=== PATIENT | male | born 1955 | race Caucasian/White ===

== ENCOUNTER → 2021-03-12 | Outpatient (CLI) | payer MEDICARE ==
[~2021-03-12] MED LIST: LISI-130 PO; SIMV40TA18 PO
[2021-03-12 11:04] LABS: BASO % 0 % (0-3); EOS # 0.2 x10^3/uL (0.0-0.7); EOS % 1 % (0-3); HEMATOCRIT 47.1 % (39.0-53.0); HEMOGLOBIN 15.5 g/dL (13.0-17.5); LYMPH # 2.2 x10^3/uL (1.0-4.8); LYMPH % 16 % (24-48); MEAN CORPUSCULAR HEMOGLOBIN 32 pg (25-35); MEAN CORPUSCULAR HGB CONC 33 g/dL (31-37); MEAN CORPUSCULAR VOLUME 97 fL (79-100); MONO # 1.1 x10^3/uL (0.0-1.1); MONO % 8 % (0-9); NEUT # 10.5 x10^3/uL (1.8-7.7); NEUT % 75 % (31-73); PLATELET COUNT 210 x10^3/uL (140-400); RED BLOOD COUNT 4.86 x10^6/uL (4.30-5.70); RED CELL DISTRIBUTION WIDTH 13.6 % (11.5-14.5)
[2021-03-12 11:29] LABS: CREATININE 1.2 mg/dL (0.7-1.3); GFR 60.6; POTASSIUM 4.5 mmol/L (3.5-5.1)
[2021-03-12 11:34] LABS: ALBUMIN/GLOBULIN RATIO 1.1 (1.0-1.7); TOTAL BILIRUBIN 0.6 mg/dL (0.2-1.0); TOTAL PROTEIN 7.7 g/dL (6.4-8.2)
== END ==
LOC: LAB 10:24
PROVIDERS: ATTEND Radiology Radiation Oncology
DX: C32.9 Malignant neoplasm of larynx, unspecified (principal); Z12.5 Encounter for screening for malignant neoplasm of prostate
CPT/HCPCS: 36415; 80053; 85025; G0103

== ENCOUNTER → 2021-03-16 | Outpatient (CLI) | payer MEDICARE ==
--- NOTE | 2021-03-16 17:15 | RAD ---
EXAM: PET/CT SCAN INDICATION: Squamous cell carcinoma of larynx. History of prostate cancer. COMPARISON: None PET/CT SCAN TECHNIQUE: Approximately 60 minutes after the intravenous administration of 12.01 millicu eric of F-18 fluorodeoxyglucose (FDG), PET imaging of the body from the base of the skull through the mid thighs was performed. Reconstruction in all 3 planes were performed. The patient's serum glucose level at the time of the F-18 FDG administration was 121 mg/dL. A noncontrast CT scan was obtained f or attenuation correction and anatomic localization purposes only and is not considered a diagnostic CT scan. PQRS compliance Statement One or more of the following individualized dose reduction techniques were utilized for this study: 1. Automated exposure control 2. Adjustment of the mA and/or kV according to patient size 3. Use of iterative reconstruction technique FINDINGS: HEAD AND NECK: There is an FDG avid left cervical chain lymph node between the left sternocleidomasto id muscle and left posterior inferior parotid gland. This measures 1.9 x 1.0 cm and has SUV max 7.74 (CT image 40/299). No other FDG avid lymph nodes. There is mild symmetric FDG uptake in the palatine tonsils and extraocular muscles, likely physiologic. Mild FDG uptake within the ethmoid air cells ass ociated with mucosal thickening is likely inflammatory. CHEST: No FDG avid lymphadenopathy in the chest. Heart is normal in size. There are coronary artery c alcifications. Mild paraseptal emphysema in the lung apices. 3 mm nodule in the right upper lobe (silke ge 88/299) and 5 mm nodule in the right middle lobe (image 120/299) are below the size threshold for PET detection. No pleural effusion. ABDOMEN AND PELVIS: No FDG avid disease or lymphadenopathy in the abdomen and pelvis. There is a calc ification in the spleen. Gallbladder is mildly distended. Slightly nodular contour of liver. There is sigmoid diverticulosis. Prostate gland is surgically absent. MUSCULOSKELETAL: There is a 2 x 1 cm area of nodular skin thickening in the posterolateral right uppe r thigh with moderate FDG uptake, SUV max 5.62 (CT image 264/299). Additional area of skin thickening with mild FDG uptake along a skinfold in the left lower quadrant anterior abdominal wall with SUV ma x 2.34 (image 234/299). No abnormal FDG uptake in the bones. IMPRESSION: 1. FDG avid left cervical chain lymph node situated between the sternocleidomastoid muscle and product management analyst ior inferior left parotid gland with SUV max 7.74, suspicious for metastatic disease. 2. No FDG avid lymphadenopathy in the chest, abdomen or pelvis. 3. 2 cm area of nodular skin thickening with moderate FDG uptake in the posterior lateral right upper thigh, SUV max 5.62. Additional area of skin thickening with mild FDG uptake in the left lower quadr ant anterior abdominal wall with SUV max 2.34. These are indeterminate. Correlate with physical exam. 3. There is a 3 mm nodule in the right upper lobe and a 5 mm nodule in the right middle lobe. These a re nonspecific and below the size threshold for PET detection. Electronically signed by: Adelina Davison MD (03/16/2021 5:13 PM) [id number]
== END ==
LOC: PETSC 10:27
PROVIDERS: ATTEND Radiology Radiation Oncology
DX: C32.9 Malignant neoplasm of larynx, unspecified (principal); R91.8 Other nonspecific abnormal finding of lung field; K57.30 Diverticulosis of large intestine without perforation or abscess without bleeding; I25.10 Atherosclerotic heart disease of native coronary artery without angina pectoris; J43.9 Emphysema, unspecified; K82.8 Other specified diseases of gallbladder; R23.4 Changes in skin texture; Z90.79 Acquired absence of other genital organ(s)
CPT/HCPCS: 78815; A9552

== ENCOUNTER → 2021-03-22 | Outpatient (CLI) | payer MEDICARE ==
[2021-03-22 10:05] LABS: CALCIUM 8.6 mg/dL (8.5-10.1); GFR 74.8; POTASSIUM 4.6 mmol/L (3.5-5.1)
[2021-03-22 10:13] LABS: ALBUMIN 3.7 g/dL (3.4-5.0); ALBUMIN/GLOBULIN RATIO 1.1 (1.0-1.7); TOTAL BILIRUBIN 0.6 mg/dL (0.2-1.0); TOTAL PROTEIN 7.2 g/dL (6.4-8.2)
== END ==
LOC: ONCLAB 09:42
PROVIDERS: ATTEND Internal Medicine Hematology & Oncology
DX: C32.9 Malignant neoplasm of larynx, unspecified (principal)
CPT/HCPCS: 36415; 80053

== ENCOUNTER 2021-03-27 06:47 | Outpatient (CLI) | payer MEDICARE ==
[~2021-03-27] VITALS: Ht 185.4 cm; Wt 118.0 kg
[2021-03-27 07:33] LABS: BASO # 0.1 x10^3/uL (0.0-0.2); BASO % 1 % (0-3); EOS # 0.3 x10^3/uL (0.0-0.7); EOS % 3 % (0-3); HEMOGLOBIN 14.6 g/dL (13.0-17.5); LYMPH # 2.1 x10^3/uL (1.0-4.8); LYMPH % 21 % (24-48); MEAN CORPUSCULAR HEMOGLOBIN 33 pg (25-35); MEAN CORPUSCULAR HGB CONC 35 g/dL (31-37); MEAN CORPUSCULAR VOLUME 96 fL (79-100); MONO # 0.9 x10^3/uL (0.0-1.1); MONO % 9 % (0-9); NEUT # 6.7 x10^3/uL (1.8-7.7); NEUT % 66 % (31-73); PLATELET COUNT 273 x10^3/uL (140-400); RED BLOOD COUNT 4.39 x10^6/uL (4.30-5.70); RED CELL DISTRIBUTION WIDTH 13.3 % (11.5-14.5); WHITE BLOOD COUNT 10.1 x10^3/uL (4.0-11.0)
[2021-03-27 07:47] LABS: CALCIUM 8.6 mg/dL (8.5-10.1); CREATININE 1.1 mg/dL (0.7-1.3); POTASSIUM 4.5 mmol/L (3.5-5.1)
[2021-03-27] MEDS ORDERED: MIDAZOLAM HCL/PF 2 MG/2 ML VIAL. ONE (08:02)
[2021-03-27] MEDS ORDERED: fentaNYL PF VIAL 100 MCG/2 ML VIAL ONE (08:03)
[2021-03-27 08:04] VITALS: BP 116/64
[2021-03-27] MEDS ORDERED: SIMV40TA18 PO (08:17)
[2021-03-27] MEDS ORDERED: LISI-130 PO (08:17)
[2021-03-27] MEDS ORDERED: LIDOCAINE 1%/EPI 1:100,000 20 ML VIAL. ONE (08:29)
[2021-03-27] MEDS ORDERED: fentaNYL PF VIAL 100 MCG/2 ML VIAL IV ONE (08:45)
[2021-03-27] MEDS ORDERED: LIDOCAINE 1%/EPI 1:100,000 20 ML VIAL. SQ ONE (08:45)
[2021-03-27] MEDS ORDERED: MIDAZOLAM HCL/PF 2 MG/2 ML VIAL. IV ONE (08:45)
[2021-03-27 09:06] VITALS: BP 109/62
[2021-03-27 09:20] VITALS: BP 126/64
[2021-03-27 09:35] VITALS: BP 116/68
[2021-03-27 10:00] VITALS: BP 97/61
--- NOTE | 2021-03-27 10:27 | RAD ---
PROCEDURE: Fluoroscopically and ultrasound-guided placement of right internal jugular tunnel central venous catheter with port (Bard PowerPort, Groshong tip ). Clinical Indication: Laryngeal cancer. Chemotherapy access. Discussion: The risks and benefits of the procedure were discussed with the patient and/or their credit and collections representative. Informed consent was obtained. The patient was brought to the fluoroscopy suite and placed in supine position. A time out procedure was performed. The right neck and chest were prepped and draped using maximum sterile barrier technique including th e use of: Current guideline approved cutaneous antisepsis, a large sterile sheet to establish a steri le field. Additionally the fixed route bus operator wore a hat, mask, sterile gloves, a sterile gown during the proce dure as well as practiced acceptable hand hygiene prior to placing the port. Ultrasound-guided access: Ultrasound evaluation showed the right jugular vein to be patent and compr essible. 1 % lidocaine with epinephrine was administered to the skin and subcutaneous tissues overlyi ng the right neck and chest. Under direct ultrasound guidance a single wall puncture was made followe d by tract dilation and placement of a sheath. An ultrasound image was saved and sent to PACS. Next, an incision was made in an infraclavicular location and a pocket created. The catheter was tunneled between the pocket and the venotomy site. The catheter was advanced through the peel away sheath, u nder fluoroscopic guidance, such that it's tip was in the mid right atrium. The catheter was connecte d to the port reservoir. The port was accessed and found to flush and aspirate normally. The reservoi r was then placed into the subcutaneous pocket. The wound was closed in layers using 3 Vicryl and 4- 0 Vicryl suture. Dermabond was applied overlying the wound, and venotomy site. The patient tolerated procedure without immediate complication. Sedation: Conscious sedation was performed for 20 minutes. Sedation was carried out while the dot ent was continually monitored by a member of the Radiology nursing staff. Continual cardiopulmonary monitoring was carried out during the procedure. The patient tolerated the procedure well and there were no immediate complications. Fluoroscopy time: 0.4 mins Dose area product 2 Hernandez centimeter squared Impression: Successful ultrasound and fluoroscopically guided placement of right internal jugular melissa chata central venous catheter with port (Bard PowerPort, Groshong tip). Electronically signed by: Patricio Belcher MD (03/27/2021 10:24 AM) [id number]
--- NOTE | 2021-03-27 10:27 | RAD ---
PROCEDURE: Fluoroscopically and ultrasound-guided placement of right internal jugular tunnel central venous catheter with port (Bard PowerPort, Groshong tip ). Clinical Indication: Laryngeal cancer. Chemotherapy access. Discussion: The risks and benefits of the procedure were discussed with the patient and/or their customer assistance representative. Informed consent was obtained. The patient was brought to the fluoroscopy suite and placed in supine position. A time out procedure was performed. The right neck and chest were prepped and draped using maximum sterile barrier technique including th e use of: Current guideline approved cutaneous antisepsis, a large sterile sheet to establish a steri le field. Additionally the fruit thinner machine operator wore a hat, mask, sterile gloves, a sterile gown during the proce dure as well as practiced acceptable hand hygiene prior to placing the port. Ultrasound-guided access: Ultrasound evaluation showed the right jugular vein to be patent and compr essible. 1 % lidocaine with epinephrine was administered to the skin and subcutaneous tissues overlyi ng the right neck and chest. Under direct ultrasound guidance a single wall puncture was made followe d by tract dilation and placement of a sheath. An ultrasound image was saved and sent to PACS. Next, an incision was made in an infraclavicular location and a pocket created. The catheter was tunneled between the pocket and the venotomy site. The catheter was advanced through the peel away sheath, u nder fluoroscopic guidance, such that it's tip was in the mid right atrium. The catheter was connecte d to the port reservoir. The port was accessed and found to flush and aspirate normally. The reservoi r was then placed into the subcutaneous pocket. The wound was closed in layers using 3 Vicryl and 4- 0 Vicryl suture. Dermabond was applied overlying the wound, and venotomy site. The patient tolerated procedure without immediate complication. Sedation: Conscious sedation was performed for 20 minutes. Sedation was carried out while the dot ent was continually monitored by a member of the Radiology nursing staff. Continual cardiopulmonary monitoring was carried out during the procedure. The patient tolerated the procedure well and there were no immediate complications. Fluoroscopy time: 0.4 mins Dose area product 2 Hernandez centimeter squared Impression: Successful ultrasound and fluoroscopically guided placement of right internal jugular melissa chata central venous catheter with port (Bard PowerPort, Groshong tip). Electronically signed by: Patricio Belcher MD (03/27/2021 10:24 AM) [id number]
--- NOTE | 2021-03-27 10:30 | NUR ---
Discharge Note: JOSEFINA MCCORMICK Discharge instructions and discharge home medications reviewed with Patient and a copy given. All questions have been answered and understanding verbalized. The following instructions and handouts were given: MODERATE SEDATION, DEB CATH CARE, INCISION CARE. Discontinued RIGHT PIV, NO COMPLICATIONS, BANDAID APPLIED. Patient discharged to HOME WITH HIS SPOUSE. PT TAKEN VIA WHEELCHAIR TO OUTPATIENT, WHERE HIS SPOUSE PICKED HIM UP. NO COMPLICATIONS AND ALL QUESTIONS ANSWERED.
== END 2021-03-27 10:20 | disposition home or self-care (01) ==
LOC: INTRAD 06:47
PROVIDERS: ATTEND Internal Medicine Hematology & Oncology
DX: Z45.2 Encounter for adjustment and management of vascular access device (principal); C32.9 Malignant neoplasm of larynx, unspecified; I10 Essential (primary) hypertension; E78.00 Pure hypercholesterolemia, unspecified; J44.9 Chronic obstructive pulmonary disease, unspecified; M19.90 Unspecified osteoarthritis, unspecified site; F17.210 Nicotine dependence, cigarettes, uncomplicated; Z79.899 Other long term (current) drug therapy; Z98.890 Other specified postprocedural states
CPT/HCPCS: 36415; 36561; 76937; 77001; 80048; 85025; 85610; 99152; C1788; C1892; J0690; J2250; J3010; J3490

== ENCOUNTER → 2021-03-27 | Outpatient (CLI) | payer MEDICARE ==
[2021-03-27 10:00] VITALS: BP 97/61
[2021-03-27 12:26] LABS: BASO % 0 % (0-3); EOS # 0.1 x10^3/uL (0.0-0.7); EOS % 1 % (0-3); HEMATOCRIT 41.2 % (39.0-53.0); HEMOGLOBIN 13.7 g/dL (13.0-17.5); LYMPH # 2.1 x10^3/uL (1.0-4.8); LYMPH % 24 % (24-48); MEAN CORPUSCULAR HEMOGLOBIN 32 pg (25-35); MEAN CORPUSCULAR HGB CONC 33 g/dL (31-37); MEAN CORPUSCULAR VOLUME 97 fL (79-100); MONO # 0.8 x10^3/uL (0.0-1.1); MONO % 9 % (0-9); NEUT # 5.9 x10^3/uL (1.8-7.7); NEUT % 66 % (31-73); PLATELET COUNT 264 x10^3/uL (140-400); RED BLOOD COUNT 4.27 x10^6/uL (4.30-5.70); RED CELL DISTRIBUTION WIDTH 13.5 % (11.5-14.5)
[2021-03-27 12:29] LABS: CALCIUM 8.3 mg/dL (8.5-10.1); CREATININE 1.1 mg/dL (0.7-1.3); POTASSIUM 4.3 mmol/L (3.5-5.1)
[2021-03-27 12:35] LABS: ALBUMIN 3.5 g/dL (3.4-5.0); ALBUMIN/GLOBULIN RATIO 1.1 (1.0-1.7); TOTAL BILIRUBIN 0.3 mg/dL (0.2-1.0); TOTAL PROTEIN 6.6 g/dL (6.4-8.2)
== END ==
LOC: ONCLAB 11:31
PROVIDERS: ATTEND Physician Assistant
DX: C32.9 Malignant neoplasm of larynx, unspecified (principal)
CPT/HCPCS: 36415; 80053; 83615; 83735; 85025

== ENCOUNTER → 2021-04-02 | Outpatient (CLI) | payer MEDICARE ==
[2021-03-27 10:00] VITALS: BP 97/61
[2021-04-02 11:55] LABS: BASO % 0 % (0-3); EOS # 0.1 x10^3/uL (0.0-0.7); EOS % 1 % (0-3); HEMATOCRIT 41.9 % (39.0-53.0); LYMPH # 1.5 x10^3/uL (1.0-4.8); LYMPH % 14 % (24-48); MEAN CORPUSCULAR HEMOGLOBIN 32 pg (25-35); MEAN CORPUSCULAR HGB CONC 33 g/dL (31-37); MEAN CORPUSCULAR VOLUME 96 fL (79-100); MONO # 0.8 x10^3/uL (0.0-1.1); MONO % 8 % (0-9); NEUT # 8.3 x10^3/uL (1.8-7.7); NEUT % 77 % (31-73); PLATELET COUNT 230 x10^3/uL (140-400); RED BLOOD COUNT 4.37 x10^6/uL (4.30-5.70); RED CELL DISTRIBUTION WIDTH 12.9 % (11.5-14.5); WHITE BLOOD COUNT 10.7 x10^3/uL (4.0-11.0)
[2021-04-02 12:02] LABS: CALCIUM 9.2 mg/dL (8.5-10.1); CREATININE 1.7 mg/dL (0.7-1.3); GFR 40.5; POTASSIUM 4.1 mmol/L (3.5-5.1)
[2021-04-02 12:08] LABS: ALBUMIN 3.6 g/dL (3.4-5.0); ALBUMIN/GLOBULIN RATIO 1.2 (1.0-1.7); TOTAL BILIRUBIN 0.5 mg/dL (0.2-1.0); TOTAL PROTEIN 6.7 g/dL (6.4-8.2)
== END ==
LOC: ONCLAB 11:42
PROVIDERS: ATTEND Internal Medicine Hematology & Oncology
DX: C32.9 Malignant neoplasm of larynx, unspecified (principal)
CPT/HCPCS: 36415; 80053; 85025

== ENCOUNTER → 2021-04-03 | Outpatient (CLI) | payer MEDICARE ==
[2021-03-27 10:00] VITALS: BP 97/61
[2021-04-03 08:49] LABS: CALCIUM 8.8 mg/dL (8.5-10.1); CREATININE 1.9 mg/dL (0.7-1.3); GFR 35.6; POTASSIUM 4.3 mmol/L (3.5-5.1)
[2021-04-03 08:54] LABS: ALBUMIN 3.6 g/dL (3.4-5.0); ALBUMIN/GLOBULIN RATIO 1.2 (1.0-1.7); TOTAL BILIRUBIN 0.6 mg/dL (0.2-1.0); TOTAL PROTEIN 6.7 g/dL (6.4-8.2)
== END ==
LOC: ONCLAB 08:12
PROVIDERS: ATTEND Internal Medicine Hematology & Oncology
DX: C32.9 Malignant neoplasm of larynx, unspecified (principal)
CPT/HCPCS: 36415; 80053

== ENCOUNTER → 2021-04-10 | Outpatient (CLI) | payer MEDICARE ==
[2021-03-27 10:00] VITALS: BP 97/61
[2021-04-10 09:02] LABS: BASO % 0 % (0-3); EOS # 0.1 x10^3/uL (0.0-0.7); EOS % 1 % (0-3); HEMATOCRIT 40.6 % (39.0-53.0); HEMOGLOBIN 13.8 g/dL (13.0-17.5); LYMPH # 0.8 x10^3/uL (1.0-4.8); LYMPH % 11 % (24-48); MEAN CORPUSCULAR HEMOGLOBIN 33 pg (25-35); MEAN CORPUSCULAR HGB CONC 34 g/dL (31-37); MEAN CORPUSCULAR VOLUME 96 fL (79-100); MONO # 0.7 x10^3/uL (0.0-1.1); MONO % 8 % (0-9); NEUT # 6.4 x10^3/uL (1.8-7.7); NEUT % 80 % (31-73); PLATELET COUNT 193 x10^3/uL (140-400); RED BLOOD COUNT 4.23 x10^6/uL (4.30-5.70); RED CELL DISTRIBUTION WIDTH 13.3 % (11.5-14.5); WHITE BLOOD COUNT 8.1 x10^3/uL (4.0-11.0)
[2021-04-10 09:22] LABS: CALCIUM 8.5 mg/dL (8.5-10.1); CREATININE 1.6 mg/dL (0.7-1.3); GFR 43.5; POTASSIUM 4.7 mmol/L (3.5-5.1)
[2021-04-10 09:24] LABS: CREATININE,RANDOM URINE 295.9 mg/dL (Not Establ.)
[2021-04-10 09:28] LABS: ALBUMIN 3.6 g/dL (3.4-5.0); TOTAL BILIRUBIN 0.6 mg/dL (0.2-1.0); TOTAL PROTEIN 7.1 g/dL (6.4-8.2)
[2021-04-11 02:25] LABS: HEMOGLOBIN A1C 6.3 % (4.8-5.6)
== END ==
LOC: ONCLAB 08:25
PROVIDERS: ATTEND Internal Medicine Hematology & Oncology
DX: Z12.5 Encounter for screening for malignant neoplasm of prostate (principal); C32.9 Malignant neoplasm of larynx, unspecified; E78.5 Hyperlipidemia, unspecified; E11.69 Type 2 diabetes mellitus with other specified complication; E55.9 Vitamin D deficiency, unspecified
CPT/HCPCS: 80053; 80061; 82306; 82570; 83036; 84156; 85025; G0103; 36415

== ENCOUNTER → 2021-04-17 | Outpatient (CLI) | payer MEDICARE ==
[2021-03-27 10:00] VITALS: BP 97/61
[2021-04-17 09:40] LABS: CALCIUM 8.7 mg/dL (8.5-10.1); CREATININE 1.7 mg/dL (0.7-1.3); GFR 40.5; POTASSIUM 4.8 mmol/L (3.5-5.1)
[2021-04-17 09:50] LABS: ALBUMIN 3.6 g/dL (3.4-5.0); ALBUMIN/GLOBULIN RATIO 1.1 (1.0-1.7); TOTAL BILIRUBIN 0.7 mg/dL (0.2-1.0); TOTAL PROTEIN 6.8 g/dL (6.4-8.2)
[2021-04-17 09:57] LABS: BASO % 0 % (0-3); EOS # 0.1 x10^3/uL (0.0-0.7); EOS % 1 % (0-3); HEMATOCRIT 37.2 % (39.0-53.0); HEMOGLOBIN 12.7 g/dL (13.0-17.5); LYMPH # 0.6 x10^3/uL (1.0-4.8); LYMPH % 8 % (24-48); MEAN CORPUSCULAR HEMOGLOBIN 32 pg (25-35); MEAN CORPUSCULAR HGB CONC 34 g/dL (31-37); MEAN CORPUSCULAR VOLUME 95 fL (79-100); MONO # 0.5 x10^3/uL (0.0-1.1); MONO % 7 % (0-9); NEUT # 5.9 x10^3/uL (1.8-7.7); NEUT % 83 % (31-73); PLATELET COUNT 176 x10^3/uL (140-400); RED CELL DISTRIBUTION WIDTH 13.3 % (11.5-14.5); WHITE BLOOD COUNT 7.2 x10^3/uL (4.0-11.0)
== END ==
LOC: ONCLAB 09:15
PROVIDERS: ATTEND Internal Medicine Hematology & Oncology
DX: C32.9 Malignant neoplasm of larynx, unspecified (principal)
CPT/HCPCS: 36415; 80053; 85025

== ENCOUNTER → 2021-04-24 | Outpatient (CLI) | payer MEDICARE ==
[2021-03-27 10:00] VITALS: BP 97/61
[2021-04-24 09:50] LABS: BASO % 0 % (0-3); EOS # 0.1 x10^3/uL (0.0-0.7); EOS % 1 % (0-3); HEMATOCRIT 31.9 % (39.0-53.0); HEMOGLOBIN 11.1 g/dL (13.0-17.5); LYMPH # 0.4 x10^3/uL (1.0-4.8); LYMPH % 10 % (24-48); MEAN CORPUSCULAR HEMOGLOBIN 33 pg (25-35); MEAN CORPUSCULAR HGB CONC 35 g/dL (31-37); MEAN CORPUSCULAR VOLUME 95 fL (79-100); MONO # 0.4 x10^3/uL (0.0-1.1); MONO % 9 % (0-9); NEUT # 3.5 x10^3/uL (1.8-7.7); NEUT % 79 % (31-73); PLATELET COUNT 113 x10^3/uL (140-400); RED BLOOD COUNT 3.37 x10^6/uL (4.30-5.70); RED CELL DISTRIBUTION WIDTH 13.1 % (11.5-14.5); WHITE BLOOD COUNT 4.4 x10^3/uL (4.0-11.0)
[2021-04-24 09:55] LABS: CALCIUM 8.6 mg/dL (8.5-10.1); CREATININE 1.3 mg/dL (0.7-1.3); GFR 55.2; POTASSIUM 4.5 mmol/L (3.5-5.1)
[2021-04-24 10:01] LABS: ALBUMIN 3.5 g/dL (3.4-5.0); TOTAL BILIRUBIN 0.5 mg/dL (0.2-1.0)
== END ==
LOC: ONCLAB 09:20
PROVIDERS: ATTEND Internal Medicine Hematology & Oncology
DX: C32.9 Malignant neoplasm of larynx, unspecified (principal)
CPT/HCPCS: 36415; 80053; 85025

== ENCOUNTER → 2021-04-30 | Outpatient (CLI) | payer MEDICARE ==
[2021-04-30 10:06] LABS: BASO % 0 % (0-3); EOS % 0 % (0-3); HEMATOCRIT 30.3 % (39.0-53.0); HEMOGLOBIN 10.3 g/dL (13.0-17.5); LYMPH # 0.2 x10^3/uL (1.0-4.8); LYMPH % 9 % (24-48); MEAN CORPUSCULAR HEMOGLOBIN 32 pg (25-35); MEAN CORPUSCULAR HGB CONC 34 g/dL (31-37); MEAN CORPUSCULAR VOLUME 95 fL (79-100); MONO # 0.3 x10^3/uL (0.0-1.1); MONO % 12 % (0-9); NEUT # 1.9 x10^3/uL (1.8-7.7); NEUT % 78 % (31-73); PLATELET COUNT 145 x10^3/uL (140-400); RED BLOOD COUNT 3.19 x10^6/uL (4.30-5.70); RED CELL DISTRIBUTION WIDTH 13.1 % (11.5-14.5); WHITE BLOOD COUNT 2.5 x10^3/uL (4.0-11.0)
[2021-04-30 10:26] LABS: CALCIUM 8.7 mg/dL (8.5-10.1); CREATININE 1.3 mg/dL (0.7-1.3); GFR 55.2; POTASSIUM 4.2 mmol/L (3.5-5.1)
[2021-04-30 10:32] LABS: ALBUMIN 3.4 g/dL (3.4-5.0); ALBUMIN/GLOBULIN RATIO 0.9 (1.0-1.7); TOTAL BILIRUBIN 0.9 mg/dL (0.2-1.0); TOTAL PROTEIN 7.2 g/dL (6.4-8.2)
== END ==
LOC: ONCLAB 09:24
PROVIDERS: ATTEND Internal Medicine Hematology & Oncology
DX: C32.9 Malignant neoplasm of larynx, unspecified (principal)
CPT/HCPCS: 36415; 80053; 85025

== ENCOUNTER → 2021-05-07 | Outpatient (CLI) | payer MEDICARE ==
[2021-05-07 10:17] LABS: BASO % 0 % (0-3); EOS % 0 % (0-3); HEMATOCRIT 26.9 % (39.0-53.0); HEMOGLOBIN 9.4 g/dL (13.0-17.5); LYMPH # 0.1 x10^3/uL (1.0-4.8); LYMPH % 7 % (24-48); MEAN CORPUSCULAR HEMOGLOBIN 33 pg (25-35); MEAN CORPUSCULAR HGB CONC 35 g/dL (31-37); MEAN CORPUSCULAR VOLUME 94 fL (79-100); MONO # 0.2 x10^3/uL (0.0-1.1); MONO % 10 % (0-9); NEUT # 1.7 x10^3/uL (1.8-7.7); NEUT % 83 % (31-73); PLATELET COUNT 139 x10^3/uL (140-400); RED BLOOD COUNT 2.86 x10^6/uL (4.30-5.70); RED CELL DISTRIBUTION WIDTH 13.6 % (11.5-14.5)
[2021-05-07 10:34] LABS: CALCIUM 8.6 mg/dL (8.5-10.1); CREATININE 1.3 mg/dL (0.7-1.3); GFR 55.2; POTASSIUM 3.9 mmol/L (3.5-5.1)
[2021-05-07 10:38] LABS: ALBUMIN 3.2 g/dL (3.4-5.0); ALBUMIN/GLOBULIN RATIO 0.8 (1.0-1.7); TOTAL BILIRUBIN 1.1 mg/dL (0.2-1.0); TOTAL PROTEIN 7.2 g/dL (6.4-8.2)
== END ==
LOC: ONCLAB 10:05
PROVIDERS: ATTEND Internal Medicine Hematology & Oncology
DX: C32.9 Malignant neoplasm of larynx, unspecified (principal)
CPT/HCPCS: 36415; 80053; 85025

== ENCOUNTER → 2021-05-16 | Outpatient (CLI) | payer MEDICARE ==
[2021-05-16 09:20] LABS: BASO % 0 % (0-3); EOS % 0 % (0-3); HEMATOCRIT 23.9 % (39.0-53.0); HEMOGLOBIN 8.5 g/dL (13.0-17.5); LYMPH # 0.3 x10^3/uL (1.0-4.8); LYMPH % 11 % (24-48); MEAN CORPUSCULAR HEMOGLOBIN 34 pg (25-35); MEAN CORPUSCULAR HGB CONC 36 g/dL (31-37); MEAN CORPUSCULAR VOLUME 94 fL (79-100); MONO # 0.5 x10^3/uL (0.0-1.1); MONO % 21 % (0-9); NEUT # 1.7 x10^3/uL (1.8-7.7); NEUT % 67 % (31-73); PLATELET COUNT 169 x10^3/uL (140-400); RED BLOOD COUNT 2.55 x10^6/uL (4.30-5.70); RED CELL DISTRIBUTION WIDTH 15.3 % (11.5-14.5); WHITE BLOOD COUNT 2.5 x10^3/uL (4.0-11.0)
[2021-05-16 09:27] LABS: CALCIUM 8.6 mg/dL (8.5-10.1); CREATININE 1.3 mg/dL (0.7-1.3); GFR 55.2; POTASSIUM 3.2 mmol/L (3.5-5.1)
[2021-05-16 09:34] LABS: ALBUMIN/GLOBULIN RATIO 0.8 (1.0-1.7); TOTAL BILIRUBIN 0.7 mg/dL (0.2-1.0)
[2021-05-16 10:14] LABS: % BANDS 24 % (0-9); % LYMPHS 11 % (24-48); % METAS 5 % (0-0); % MONOS 14 % (0-10); % SEGS 46 % (35-66); NUCLEATED RBC 1
[2021-05-16 10:15] LABS: ANISOCYTOSIS SLIGHT; PLT ESTIMATE ADEQUATE (ADEQUATE); POLYCHROMASIA OCCASIONAL
== END ==
LOC: ONCLAB 08:50
PROVIDERS: ATTEND Internal Medicine Hematology & Oncology
DX: C32.9 Malignant neoplasm of larynx, unspecified (principal)
CPT/HCPCS: 36415; 80053; 85007; 85025

== ENCOUNTER → 2021-05-23 | Outpatient (CLI) | payer MEDICARE ==
[2021-05-23 10:10] LABS: BASO % 1 % (0-3); EOS % 0 % (0-3); HEMATOCRIT 26.4 % (39.0-53.0); HEMOGLOBIN 9.3 g/dL (13.0-17.5); LYMPH # 0.2 x10^3/uL (1.0-4.8); LYMPH % 6 % (24-48); MEAN CORPUSCULAR HEMOGLOBIN 34 pg (25-35); MEAN CORPUSCULAR HGB CONC 35 g/dL (31-37); MEAN CORPUSCULAR VOLUME 97 fL (79-100); MONO # 0.7 x10^3/uL (0.0-1.1); MONO % 18 % (0-9); NEUT # 2.9 x10^3/uL (1.8-7.7); NEUT % 76 % (31-73); PLATELET COUNT 193 x10^3/uL (140-400); RED BLOOD COUNT 2.73 x10^6/uL (4.30-5.70); RED CELL DISTRIBUTION WIDTH 19.1 % (11.5-14.5); WHITE BLOOD COUNT 3.8 x10^3/uL (4.0-11.0)
[2021-05-23 10:19] LABS: CALCIUM 8.5 mg/dL (8.5-10.1); CREATININE 1.1 mg/dL (0.7-1.3); POTASSIUM 3.1 mmol/L (3.5-5.1)
[2021-05-23 10:23] LABS: ALBUMIN 2.8 g/dL (3.4-5.0); ALBUMIN/GLOBULIN RATIO 0.7 (1.0-1.7); TOTAL BILIRUBIN 0.9 mg/dL (0.2-1.0); TOTAL PROTEIN 6.9 g/dL (6.4-8.2)
== END ==
LOC: ONCLAB 09:48
PROVIDERS: ATTEND Internal Medicine Hematology & Oncology
DX: C32.9 Malignant neoplasm of larynx, unspecified (principal)
CPT/HCPCS: 36415; 80053; 85025

== ENCOUNTER → 2021-06-01 | Outpatient (CLI) | payer MEDICARE ==
[2021-06-01 10:26] LABS: ALBUMIN/GLOBULIN RATIO 0.8 (1.0-1.7); CALCIUM 8.1 mg/dL (8.5-10.1); CREATININE 1.1 mg/dL (0.7-1.3); TOTAL BILIRUBIN 0.8 mg/dL (0.2-1.0)
[2021-06-01 10:31] LABS: POTASSIUM 2.8 mmol/L (3.5-5.1)
== END ==
LOC: ONCLAB 09:48
PROVIDERS: ATTEND Internal Medicine Hematology & Oncology
DX: C32.9 Malignant neoplasm of larynx, unspecified (principal)
CPT/HCPCS: 36415; 80053

== ENCOUNTER → 2021-06-04 | Outpatient (CLI) | payer MEDICARE ==
[2021-06-04 10:28] LABS: BASO % 0 % (0-3); EOS % 0 % (0-3); HEMATOCRIT 31.5 % (39.0-53.0); HEMOGLOBIN 10.5 g/dL (13.0-17.5); LYMPH # 0.4 x10^3/uL (1.0-4.8); LYMPH % 5 % (24-48); MEAN CORPUSCULAR HEMOGLOBIN 34 pg (25-35); MEAN CORPUSCULAR HGB CONC 33 g/dL (31-37); MEAN CORPUSCULAR VOLUME 100 fL (79-100); MONO % 14 % (0-9); NEUT # 5.9 x10^3/uL (1.8-7.7); NEUT % 81 % (31-73); PLATELET COUNT 232 x10^3/uL (140-400); RED BLOOD COUNT 3.13 x10^6/uL (4.30-5.70); WHITE BLOOD COUNT 7.3 x10^3/uL (4.0-11.0)
[2021-06-04 10:44] LABS: ALBUMIN 3.1 g/dL (3.4-5.0); ALBUMIN/GLOBULIN RATIO 0.8 (1.0-1.7); CALCIUM 8.2 mg/dL (8.5-10.1); CREATININE 1.3 mg/dL (0.7-1.3); GFR 55.2; TOTAL BILIRUBIN 0.7 mg/dL (0.2-1.0); TOTAL PROTEIN 7.1 g/dL (6.4-8.2)
[2021-06-04 10:49] LABS: POTASSIUM 2.8 mmol/L (3.5-5.1)
[2021-06-04 10:59] LABS: ANISOCYTOSIS MOD; PLT ESTIMATE ADEQUATE (ADEQUATE); POLYCHROMASIA OCCASIONAL
== END ==
LOC: ONCLAB 09:07
PROVIDERS: ATTEND Internal Medicine Hematology & Oncology
DX: C32.9 Malignant neoplasm of larynx, unspecified (principal)
CPT/HCPCS: 36415; 80053; 83735; 85025

== ENCOUNTER → 2021-06-05 | Outpatient (CLI) | payer MEDICARE ==
[2021-06-05 09:32] LABS: BASO % 0 % (0-3); EOS % 1 % (0-3); HEMATOCRIT 30.7 % (39.0-53.0); HEMOGLOBIN 10.4 g/dL (13.0-17.5); LYMPH # 0.4 x10^3/uL (1.0-4.8); LYMPH % 5 % (24-48); MEAN CORPUSCULAR HEMOGLOBIN 34 pg (25-35); MEAN CORPUSCULAR HGB CONC 34 g/dL (31-37); MEAN CORPUSCULAR VOLUME 101 fL (79-100); MONO # 0.9 x10^3/uL (0.0-1.1); MONO % 12 % (0-9); NEUT # 5.7 x10^3/uL (1.8-7.7); NEUT % 82 % (31-73); PLATELET COUNT 227 x10^3/uL (140-400); RED BLOOD COUNT 3.05 x10^6/uL (4.30-5.70); RED CELL DISTRIBUTION WIDTH 21.3 % (11.5-14.5)
[2021-06-05 09:45] LABS: ALBUMIN/GLOBULIN RATIO 0.8 (1.0-1.7); CALCIUM 7.8 mg/dL (8.5-10.1); CREATININE 1.2 mg/dL (0.7-1.3); GFR 60.6; TOTAL BILIRUBIN 0.6 mg/dL (0.2-1.0); TOTAL PROTEIN 6.9 g/dL (6.4-8.2)
[2021-06-05 09:50] LABS: POTASSIUM 2.9 mmol/L (3.5-5.1)
== END ==
LOC: ONCLAB 09:15
PROVIDERS: ATTEND Internal Medicine Hematology & Oncology
DX: C32.9 Malignant neoplasm of larynx, unspecified (principal)
CPT/HCPCS: 36415; 80053; 83735; 85025

== ENCOUNTER → 2021-06-08 | Outpatient (CLI) | payer MEDICARE ==
[2021-06-08 09:21] LABS: CALCIUM 8.3 mg/dL (8.5-10.1); CREATININE 1.2 mg/dL (0.7-1.3); GFR 60.6; POTASSIUM 3.2 mmol/L (3.5-5.1)
[2021-06-08 09:27] LABS: ALBUMIN/GLOBULIN RATIO 0.8 (1.0-1.7); MAGNESIUM 1.3 mg/dL (1.8-2.4); TOTAL BILIRUBIN 0.6 mg/dL (0.2-1.0)
== END ==
LOC: ONCLAB 08:53
PROVIDERS: ATTEND Internal Medicine Hematology & Oncology
DX: C32.9 Malignant neoplasm of larynx, unspecified (principal)
CPT/HCPCS: 36415; 80053; 83735

== ENCOUNTER → 2021-06-11 | Outpatient (CLI) | payer MEDICARE ==
[2021-06-11 11:26] LABS: CALCIUM 8.7 mg/dL (8.5-10.1); CREATININE 1.2 mg/dL (0.7-1.3); GFR 60.6; POTASSIUM 3.7 mmol/L (3.5-5.1)
[2021-06-11 11:29] LABS: ALBUMIN 3.1 g/dL (3.4-5.0); ALBUMIN/GLOBULIN RATIO 0.8 (1.0-1.7); MAGNESIUM 1.4 mg/dL (1.8-2.4); TOTAL BILIRUBIN 0.6 mg/dL (0.2-1.0); TOTAL PROTEIN 6.9 g/dL (6.4-8.2)
== END ==
LOC: ONCLAB 10:30
PROVIDERS: ATTEND Internal Medicine Hematology & Oncology
DX: C32.9 Malignant neoplasm of larynx, unspecified (principal)
CPT/HCPCS: 36415; 80053; 83735

== ENCOUNTER → 2021-06-14 | Outpatient (CLI) | payer MEDICARE ==
[2021-06-14 10:08] LABS: CALCIUM 8.4 mg/dL (8.5-10.1); CREATININE 1.3 mg/dL (0.7-1.3); GFR 55.2; POTASSIUM 3.8 mmol/L (3.5-5.1)
[2021-06-14 10:12] LABS: ALBUMIN 3.1 g/dL (3.4-5.0); ALBUMIN/GLOBULIN RATIO 0.8 (1.0-1.7); MAGNESIUM 1.4 mg/dL (1.8-2.4); TOTAL BILIRUBIN 0.4 mg/dL (0.2-1.0)
== END ==
LOC: ONCLAB 09:37
PROVIDERS: ATTEND Internal Medicine Hematology & Oncology
DX: C32.9 Malignant neoplasm of larynx, unspecified (principal)
CPT/HCPCS: 36415; 80053; 83735

== ENCOUNTER → 2021-06-21 | Outpatient (CLI) | payer MEDICARE ==
[2021-06-21 09:51] LABS: CALCIUM 8.5 mg/dL (8.5-10.1); CREATININE 1.1 mg/dL (0.7-1.3); POTASSIUM 3.8 mmol/L (3.5-5.1)
[2021-06-21 09:53] LABS: BASO % 1 % (0-3); EOS # 0.1 x10^3/uL (0.0-0.7); EOS % 2 % (0-3); HEMATOCRIT 33.3 % (39.0-53.0); HEMOGLOBIN 11.1 g/dL (13.0-17.5); LYMPH # 0.5 x10^3/uL (1.0-4.8); LYMPH % 12 % (24-48); MEAN CORPUSCULAR HEMOGLOBIN 35 pg (25-35); MEAN CORPUSCULAR HGB CONC 33 g/dL (31-37); MEAN CORPUSCULAR VOLUME 104 fL (79-100); MONO # 0.4 x10^3/uL (0.0-1.1); MONO % 10 % (0-9); NEUT # 3.3 x10^3/uL (1.8-7.7); NEUT % 76 % (31-73); PLATELET COUNT 204 x10^3/uL (140-400); RED BLOOD COUNT 3.19 x10^6/uL (4.30-5.70); RED CELL DISTRIBUTION WIDTH 18.1 % (11.5-14.5); WHITE BLOOD COUNT 4.3 x10^3/uL (4.0-11.0)
[2021-06-21 09:57] LABS: ALBUMIN 3.2 g/dL (3.4-5.0); ALBUMIN/GLOBULIN RATIO 0.9 (1.0-1.7); MAGNESIUM 1.8 mg/dL (1.8-2.4); PHOSPHORUS 3.3 mg/dL (2.6-4.7); TOTAL BILIRUBIN 0.4 mg/dL (0.2-1.0); TOTAL PROTEIN 6.9 g/dL (6.4-8.2)
== END ==
LOC: ONCLAB 09:08
PROVIDERS: ATTEND Internal Medicine Hematology & Oncology
DX: C32.9 Malignant neoplasm of larynx, unspecified (principal)
CPT/HCPCS: 36415; 80053; 83735; 84100; 85025

== ENCOUNTER → 2021-07-05 | Outpatient (CLI) | payer MEDICARE ==
[2021-07-05 09:42] LABS: BASO % 0 % (0-3); EOS # 0.1 x10^3/uL (0.0-0.7); EOS % 1 % (0-3); HEMATOCRIT 35.4 % (39.0-53.0); HEMOGLOBIN 11.9 g/dL (13.0-17.5); LYMPH # 0.7 x10^3/uL (1.0-4.8); LYMPH % 12 % (24-48); MEAN CORPUSCULAR HEMOGLOBIN 35 pg (25-35); MEAN CORPUSCULAR HGB CONC 34 g/dL (31-37); MEAN CORPUSCULAR VOLUME 105 fL (79-100); MONO # 0.5 x10^3/uL (0.0-1.1); MONO % 9 % (0-9); NEUT # 4.3 x10^3/uL (1.8-7.7); NEUT % 77 % (31-73); PLATELET COUNT 241 x10^3/uL (140-400); RED BLOOD COUNT 3.37 x10^6/uL (4.30-5.70); RED CELL DISTRIBUTION WIDTH 15.1 % (11.5-14.5); WHITE BLOOD COUNT 5.6 x10^3/uL (4.0-11.0)
[2021-07-05 09:49] LABS: GFR 74.8; POTASSIUM 3.9 mmol/L (3.5-5.1)
[2021-07-05 09:57] LABS: ALBUMIN 3.7 g/dL (3.4-5.0); MAGNESIUM 1.6 mg/dL (1.8-2.4); PHOSPHORUS 3.5 mg/dL (2.6-4.7); TOTAL BILIRUBIN 0.4 mg/dL (0.2-1.0); TOTAL PROTEIN 7.3 g/dL (6.4-8.2)
== END ==
LOC: ONCLAB 09:18
PROVIDERS: ATTEND Internal Medicine Hematology & Oncology
DX: C32.9 Malignant neoplasm of larynx, unspecified (principal)
CPT/HCPCS: 36415; 80053; 83735; 84100; 85025

== ENCOUNTER → 2021-08-02 | Outpatient (CLI) | payer MEDICARE ==
[2021-08-02 09:28] LABS: BASO % 0 % (0-3); EOS # 0.1 x10^3/uL (0.0-0.7); EOS % 2 % (0-3); HEMATOCRIT 39.2 % (39.0-53.0); HEMOGLOBIN 13.1 g/dL (13.0-17.5); LYMPH # 0.7 x10^3/uL (1.0-4.8); LYMPH % 13 % (24-48); MEAN CORPUSCULAR HEMOGLOBIN 35 pg (25-35); MEAN CORPUSCULAR HGB CONC 34 g/dL (31-37); MEAN CORPUSCULAR VOLUME 104 fL (79-100); MONO # 0.6 x10^3/uL (0.0-1.1); MONO % 10 % (0-9); NEUT # 4.4 x10^3/uL (1.8-7.7); NEUT % 75 % (31-73); PLATELET COUNT 214 x10^3/uL (140-400); RED BLOOD COUNT 3.78 x10^6/uL (4.30-5.70); RED CELL DISTRIBUTION WIDTH 13.7 % (11.5-14.5); WHITE BLOOD COUNT 5.9 x10^3/uL (4.0-11.0)
[2021-08-02 09:40] LABS: CREATININE 1.1 mg/dL (0.7-1.3); POTASSIUM 3.8 mmol/L (3.5-5.1)
[2021-08-02 09:47] LABS: ALBUMIN 3.7 g/dL (3.4-5.0); ALBUMIN/GLOBULIN RATIO 1.1 (1.0-1.7); TOTAL BILIRUBIN 0.2 mg/dL (0.2-1.0); TOTAL PROTEIN 7.1 g/dL (6.4-8.2)
== END ==
LOC: ONCLAB 08:52
PROVIDERS: ATTEND Internal Medicine Hematology & Oncology
DX: C32.9 Malignant neoplasm of larynx, unspecified (principal); E03.2 Hypothyroidism due to medicaments and other exogenous substances
CPT/HCPCS: 36415; 80053; 84443; 85025

== ENCOUNTER → 2021-08-10 | Outpatient (CLI) | payer MEDICARE ==
--- NOTE | 2021-08-10 14:56 | RAD ---
Exam description: NM PET/CT SKULL BASE TO MID THIGH Date of service: 08/10/2021 1:14 PM Clinical history: 66 years-old Male with laryngeal cancer. Cervical chain adenopathy, metastatic dise ase. Comparison: PET/CT from 03/16/2021 Technique: The patient has a measured blood glucose level of 133 mg/dL at the time of radiopharmacuet ical injection. The patient was injected with 12.3 mCi of 18F-FDg intravenously and remained in a kailey et dimly lit room for approximately 60 minutes for the uptake phase of the examination. The patient w as then placed in the PET/CT scanner and images were obtained from the top of the skull through the u pper thighs. CT images were used primarily for attenuation correction and localization. The attenuate d corrected and non corrected PET, CT, and fused PET/CT images were reviewed at the [facility] workstation. Background SUV: SUV mediastinal blood pool:2.09 SUV of the hepatic parenchyma:2.8 Findings: HEAD/NECK: Interval decrease in size and FDG avidity of the left cervical chain lymph node residing b etween the left sternocleidomastoid muscle and left posterior inferior parotid gland. This currently measures 1.4 x 0.8 cm and has a SUV max of 4.74, previously measured 1.9 cm with a SUV max of 7.74. Normal symmetric physiologic activity is identified within the extraocular muscles and brain. No abno rmal radiotracer activity is identified within the head and neck. No abnormally enlarged lymph nodes are evident. CHEST: No biapical pleural scarring. Upper lobe predominant moderate centrilobular and paraseptal emp hysematous changes. Similar 3 mm nodule in the right upper lobe (image 114/3) and 5 mm nodule in the right middle lobe (147/3) these are below the size threshold for PET detection. Mild/moderate bibasil ar subsegmental atelectasis. There is no abnormal supraclavicular, hilar, paratracheal, or mediastina l lymphadenopathy. The heart is not enlarged. Extensive coronary artery atherosclerotic disease. Righ t chest Port-A-Cath noted. Bilateral benign gynecomastia. ABDOMEN/PELVIS: There is normal metabolic activity within the liver, spleen, kidneys, collecting syst em, and bowel. No abnormal lymphadenopathy or hypermetabolic activity is identified. Sigmoid divertic ulosis without diverticulitis. Prostate gland is surgically absent. SKELETAL STRUCTURES: Previously described nodular skin thickening in the posterior lateral right thig h with associated moderate FDG uptake is not appreciated on today's exam. The additional area of skin thickening with mild FDG uptake along a skinfold in the left lower quadrant of the anterior abdomina l wall is decrease in size and FDG avidity with a current SUV max of 1.42, previously measured 2.34, this is most consistent with improving inflamed sebaceous cysts. There is normal physiologic activity within the osseous structures, bone marrow, and skeletal muscle. Impression: 1. Positive treatment response with decreased size and FDG avidity of the left cervical chain michele m etastasis. 2. No FDG avid lymphadenopathy in the chest, abdomen, or pelvis. 3. Resolution of hypermetabolic nodular skin thickening in the posterior lateral right upper thigh as well as decreased size and FDG avidity of the nodular skin thickening in the left lower quadrant ant erior abdominal wall. These findings favor improving/resolved inflamed sebaceous cysts. 4. Similar appearing 3 mm nodule in the right upper lobe and 5 mm nodule in the right middle lobe. Th tim are nonspecific and resides below the size threshold for PET CT. PQRS Compliance Statement: One or more of the following individualized dose reduction techniques were utilized for this examinat ion: 1. Automated exposure control 2. Adjustment of the mA and/or kV according to patient size 3. Use of iterative reconstruction technique Electronically signed by: Marc Rossi DO (08/10/2021 2:53 PM) [id number]
== END ==
LOC: PETSC 10:49
PROVIDERS: ATTEND Physician Assistant
DX: C32.3 Malignant neoplasm of laryngeal cartilage (principal); C77.0 Secondary and unspecified malignant neoplasm of lymph nodes of head, face and neck; R91.8 Other nonspecific abnormal finding of lung field; I25.10 Atherosclerotic heart disease of native coronary artery without angina pectoris; J43.2 Centrilobular emphysema; K57.30 Diverticulosis of large intestine without perforation or abscess without bleeding; N62 Hypertrophy of breast; Z90.79 Acquired absence of other genital organ(s)
CPT/HCPCS: 78815; A9552

== ENCOUNTER → 2021-08-21 | Outpatient (CLI) | payer MEDICARE ==
[2021-08-21 10:43] LABS: GFR 74.8; POTASSIUM 3.6 mmol/L (3.5-5.1)
[2021-08-21 10:48] LABS: ALBUMIN 3.7 g/dL (3.4-5.0); ALBUMIN/GLOBULIN RATIO 1.1 (1.0-1.7); MAGNESIUM 1.7 mg/dL (1.8-2.4); TOTAL BILIRUBIN 0.4 mg/dL (0.2-1.0); TOTAL PROTEIN 7.2 g/dL (6.4-8.2)
[2021-08-21 10:58] LABS: BASO % 0 % (0-3); EOS # 0.1 x10^3/uL (0.0-0.7); EOS % 2 % (0-3); HEMOGLOBIN 13.9 g/dL (13.0-17.5); LYMPH # 0.6 x10^3/uL (1.0-4.8); LYMPH % 11 % (24-48); MEAN CORPUSCULAR HEMOGLOBIN 34 pg (25-35); MEAN CORPUSCULAR HGB CONC 34 g/dL (31-37); MEAN CORPUSCULAR VOLUME 101 fL (79-100); MONO # 0.5 x10^3/uL (0.0-1.1); MONO % 9 % (0-9); NEUT # 4.6 x10^3/uL (1.8-7.7); NEUT % 78 % (31-73); PLATELET COUNT 207 x10^3/uL (140-400); RED BLOOD COUNT 4.04 x10^6/uL (4.30-5.70); RED CELL DISTRIBUTION WIDTH 13.5 % (11.5-14.5); WHITE BLOOD COUNT 5.9 x10^3/uL (4.0-11.0)
== END ==
LOC: ONCLAB 10:09
PROVIDERS: ATTEND Internal Medicine Hematology & Oncology
DX: C32.9 Malignant neoplasm of larynx, unspecified (principal)
CPT/HCPCS: 36415; 80053; 83735; 85025